=== PATIENT | female | born 1955 | race Caucasian/White ===

== ENCOUNTER 2017-10-14 12:37 | Inpatient (IN) | payer BC ==
[2017-10-14] MEDS ORDERED: NS 250 ML IV 250 ML IV ONE (14:36)
[2017-10-14 15:14] LABS: BASOPHILS # (AUTO) 0.1 X10^3/uL (0.0-0.1); BASOPHILS % (AUTO) 0.9 % (0.2-1.0); HEMATOCRIT 39.9 % (36.0-47.0); HEMOGLOBIN 13.9 g/dL (12.0-16.0); LYMPHOCYTES # (AUTO) 1.8 X10^3/uL (1.3-2.9); LYMPHOCYTES % (AUTO) 16.6 % (21.0-51.0); MEAN CORPUSCULAR HEMOGLOBIN 30.7 pg (27.0-34.0); MEAN CORPUSCULAR HGB CONC 34.7 g/dL (33.0-35.0); MEAN CORPUSCULAR VOLUME 88.4 fL (80.0-100.0); MEAN PLATELET VOLUME 9.7 fL (7.4-11.0); MONOCYTES % (AUTO) 9.1 % (0.0-13.0); NEUTROPHILS # (AUTO) 7.8 x10^3/uL (2.2-4.8); NEUTROPHILS % (AUTO) 73.4 % (42.0-75.0); PLATELET COUNT 237 X10^3/uL (150.0-450.0); RED BLOOD COUNT 4.52 X10^6/uL (3.5-5.4); RED CELL DISTRIBUTION WIDTH 13.7 % (11.6-16.5); WHITE BLOOD COUNT 10.6 X10^3/uL (3.6-10.0)
[2017-10-14 15:26] LABS: ALANINE AMINOTRANSFERASE 38 Units/L (12-78); ALBUMIN 3.4 g/dL (3.4-5.0); ALKALINE PHOSPHATASE 74 Units/L (46-116); AMYLASE 51 Units/L (25-115); ASPARTATE AMINO TRANSFERASE 30 Units/L (15-37); BLOOD UREA NITROGEN 9 mg/dL (7-18); CALCIUM 8.5 mg/dL (8.5-10.1); CARBON DIOXIDE 26.2 mmol/L (21-32); CHLORIDE 103 mmol/L (98-107); CREATININE 1.01 mg/dL (0.55-1.02); LIPASE 212 Units/L (73-393); SODIUM 139 mmol/L (136-145); TOTAL PROTEIN 7.1 g/dL (6.4-8.2); eGFR BLACK RACES > 60 (>60); eGFR NON BLACK RACES 59 (>60)
[2017-10-14] MEDS: FLAGYL IV PREMIX 500 MG BAG 500 MG/100 ML BAG IV SCH ×2 (15:39→22:15)
[2017-10-14] MEDS: PROTONIX INJ 40 MG VIAL IVP SCH (15:40)
[2017-10-14] MEDS: NS 1000 ML 1,000 ML IV SCH (15:40)
[2017-10-14] MEDS ORDERED: DUONEB 0.5 MG/3 MG NEB PRN (15:54)
[2017-10-14] MEDS ORDERED: POTASSIUM CHL 60 MEQ/NS 0.45% 500 ML IV PRN (16:46)
[2017-10-14] MEDS ORDERED: MAG-OX TAB PO PRN (16:46)
[2017-10-14] MEDS ORDERED: POTASSIUM CHLORIDE LIQ 20 MEQ UDC PO PRN (16:46)
[2017-10-14] MEDS ORDERED: K-RIDER 10 MEQ/NS 100 ML 10 MEQ/100 ML BAG IV PRN (16:46)
[2017-10-14] MEDS ORDERED: POTASSIUM CHL 40 MEQ/NS 0.45% 500 ML IV PRN (16:46)
[2017-10-14] MEDS ORDERED: K-LYTE EFFERVESCENT PO PRN (16:46)
[2017-10-14] MEDS: ZOFRAN INJ 4 MG VIAL IVP PRN (16:55)
[2017-10-14 18:20] VITALS: BMI 31.2
[2017-10-14 18:34] LABS: BILIRUBIN,URINE NEGATIVE (NEGATIVE); BLOOD/HEMOGLOBIN,URINE NEGATIVE (NEGATIVE); GLUCOSE, URINE NEGATIVE (NEGATIVE); KETONES,URINE NEGATIVE (NEGATIVE); LEUKOCYTE ESTERASE ,URINE 1+ (NEGATIVE); NITRITES,URINE NEGATIVE (NEGATIVE); PH,URINE 6.5 (5.0 - 8.0); PROTEIN,URINE NEGATIVE (NEGATIVE); UROBILINOGEN,URINE NORMAL (NORMAL)
[2017-10-14 18:43] LABS: APPEARANCE,URINE CLEAR (CLEAR); BACTERIA,URINE 1+ /HPF (NEGATIVE); COLOR,URINE PALE YELLOW (YELLOW); RBC,URINE NONE SEEN /HPF (NEGATIVE); SQUAMOUS EPITHELIAL CELL,UR MODERATE /HPF (NEGATIVE)
[2017-10-15] MEDS: MAGNESIUM SULFATE 1 GM/100 mL PREMIX 1 GM/100 ML BAG IV PRN ×3 (00:21→02:47)
[2017-10-15] MEDS: TYLENOL 325 MG TAB PO PRN (02:47)
[2017-10-15] MEDS: NS 1000 ML 1,000 ML IV SCH ×2 (03:06→06:38)
[2017-10-15 04:25] LABS: BASOPHILS % (AUTO) 0.5 % (0.2-1.0); EOSINOPHILS # (AUTO) 0.1 x10^3/uL (0.0-0.2); EOSINOPHILS % (AUTO) 0.8 % (0.9-2.9); HEMATOCRIT 36.3 % (36.0-47.0); HEMOGLOBIN 12.6 g/dL (12.0-16.0); LYMPHOCYTES # (AUTO) 1.9 X10^3/uL (1.3-2.9); LYMPHOCYTES % (AUTO) 20.9 % (21.0-51.0); MEAN CORPUSCULAR HEMOGLOBIN 30.6 pg (27.0-34.0); MEAN CORPUSCULAR HGB CONC 34.8 g/dL (33.0-35.0); MEAN CORPUSCULAR VOLUME 87.9 fL (80.0-100.0); MEAN PLATELET VOLUME 9.7 fL (7.4-11.0); MONOCYTES # (AUTO) 0.9 x10^3/uL (0.3-0.8); MONOCYTES % (AUTO) 10.5 % (0.0-13.0); NEUTROPHILS % (AUTO) 67.3 % (42.0-75.0); PLATELET COUNT 217 X10^3/uL (150.0-450.0); RED BLOOD COUNT 4.13 X10^6/uL (3.5-5.4); RED CELL DISTRIBUTION WIDTH 13.6 % (11.6-16.5); WHITE BLOOD COUNT 8.9 X10^3/uL (3.6-10.0)
[2017-10-15 04:36] LABS: ALANINE AMINOTRANSFERASE 32 Units/L (12-78); ALBUMIN 2.9 g/dL (3.4-5.0); ALKALINE PHOSPHATASE 61 Units/L (46-116); ASPARTATE AMINO TRANSFERASE 27 Units/L (15-37); BLOOD UREA NITROGEN 6 mg/dL (7-18); CALCIUM 7.9 mg/dL (8.5-10.1); CARBON DIOXIDE 25.9 mmol/L (21-32); CHLORIDE 106 mmol/L (98-107); COR CA(FOR HYPOALB) 8.8 mg/dL (8.5-10.1); COR NA(FOR HYPERGLY) 140 mmol/L (136-145); CREATININE 0.89 mg/dL (0.55-1.02); SODIUM 139 mmol/L (136-145); TOTAL PROTEIN 6.1 g/dL (6.4-8.2); eGFR BLACK RACES > 60 (>60); eGFR NON BLACK RACES > 60 (>60)
[2017-10-15] MEDS: FLAGYL IV PREMIX 500 MG BAG 500 MG/100 ML BAG IV SCH ×3 (06:37→21:59)
[2017-10-15] MEDS: ZOFRAN INJ 4 MG VIAL IVP PRN ×2 (07:24→17:23)
[2017-10-15] MEDS: PROTONIX INJ 40 MG VIAL IVP SCH (09:51)
[2017-10-15] MEDS ORDERED: CELECOXIB PO PRN (20:10)
[2017-10-15] MEDS ORDERED: PHENERGAN TAB 25 MG PO PRN (20:10)
[2017-10-15] MEDS ORDERED: CELEBREX PO PRN (20:20)
[2017-10-15] MEDS ORDERED: PATIENT'S HOME MEDICATION (Potassium Chloride [Potassium Chloride] 1 TAB) PO SCH (21:00)
[2017-10-15] MEDS: K-DUR TAB 20 MEQ PO SCH (21:58)
[2017-10-16] MEDS ORDERED: MAALOX or MYLANTA PO PRN (01:33)
[2017-10-16] MEDS: ZOFRAN INJ 4 MG VIAL IVP PRN ×2 (01:42→08:14)
[2017-10-16] MEDS: TYLENOL 325 MG TAB PO PRN (03:52)
[2017-10-16 04:31] LABS: CRYPTOSPORIDIUM PARVUM ANTIGEN NEGATIVE (NEGATIVE); GIARDIA LAMBLIA ANTIGEN NEGATIVE (NEGATIVE)
[2017-10-16 06:36] LABS: BASOPHILS # (AUTO) 0.1 X10^3/uL (0.0-0.1); BASOPHILS % (AUTO) 0.6 % (0.2-1.0); EOSINOPHILS # (AUTO) 0.1 x10^3/uL (0.0-0.2); EOSINOPHILS % (AUTO) 1.1 % (0.9-2.9); HEMOGLOBIN 12.7 g/dL (12.0-16.0); LYMPHOCYTES # (AUTO) 1.8 X10^3/uL (1.3-2.9); LYMPHOCYTES % (AUTO) 20.5 % (21.0-51.0); MEAN CORPUSCULAR HEMOGLOBIN 30.6 pg (27.0-34.0); MEAN CORPUSCULAR HGB CONC 34.4 g/dL (33.0-35.0); MEAN CORPUSCULAR VOLUME 88.8 fL (80.0-100.0); MEAN PLATELET VOLUME 9.8 fL (7.4-11.0); MONOCYTES # (AUTO) 0.7 x10^3/uL (0.3-0.8); MONOCYTES % (AUTO) 7.6 % (0.0-13.0); NEUTROPHILS % (AUTO) 70.2 % (42.0-75.0); PLATELET COUNT 217 X10^3/uL (150.0-450.0); RED BLOOD COUNT 4.16 X10^6/uL (3.5-5.4); RED CELL DISTRIBUTION WIDTH 13.8 % (11.6-16.5); WHITE BLOOD COUNT 8.6 X10^3/uL (3.6-10.0)
[2017-10-16 06:40] LABS: ALANINE AMINOTRANSFERASE 35 Units/L (12-78); ALBUMIN 3.1 g/dL (3.4-5.0); ALKALINE PHOSPHATASE 63 Units/L (46-116); ASPARTATE AMINO TRANSFERASE 27 Units/L (15-37); BLOOD UREA NITROGEN 4 mg/dL (7-18); CARBON DIOXIDE 25.4 mmol/L (21-32); CHLORIDE 108 mmol/L (98-107); COR CA(FOR HYPOALB) 8.7 mg/dL (8.5-10.1); COR NA(FOR HYPERGLY) 142 mmol/L (136-145); CREATININE 0.85 mg/dL (0.55-1.02); SODIUM 142 mmol/L (136-145); TOTAL PROTEIN 6.4 g/dL (6.4-8.2); eGFR BLACK RACES > 60 (>60); eGFR NON BLACK RACES > 60 (>60)
[2017-10-16] MEDS: FLAGYL IV PREMIX 500 MG BAG 500 MG/100 ML BAG IV SCH (08:14)
[2017-10-16] MEDS: PROTONIX INJ 40 MG VIAL IVP SCH ×2 (08:14→21:48)
[2017-10-16] MEDS: ASPIRIN 81 MG CHEWTAB PO SCH (08:15)
[2017-10-16] MEDS: CELEXA PO SCH (08:15)
[2017-10-16] MEDS: K-DUR TAB 20 MEQ PO SCH ×2 (08:15→21:47)
[2017-10-16] MEDS: ZESTRIL TAB 10 MG PO SCH (08:15)
[2017-10-16] MEDS: MAXZIDE 37.5/25 MG PO SCH (09:00)
[2017-10-16] MEDS ORDERED: CITALOPRAM HYDROBROMIDE PO SCH (09:00)
[2017-10-16] MEDS: BENTYL CAP 10 MG PO SCH ×4 (14:54→21:46)
[2017-10-16] MEDS: LEVSIN/MAALOX/LIDOC VISC PO SCH ×4 (14:55→21:47)
[2017-10-16] MEDS: VANCOMYCIN HCL PO SCH ×3 (14:56→21:49)
[2017-10-16] MEDS: PEPCID 20 MG IV PREMIX* 20 MG/50 ML BAG IV SCH ×2 (15:00→21:48)
[2017-10-16] MEDS: NS 1000 ML 1,000 ML IV SCH (20:12)
[2017-10-17] MEDS: VANCOMYCIN HCL PO SCH ×4 (03:13→20:45)
[2017-10-17 06:56] LABS: BASOPHILS # (AUTO) 0.1 X10^3/uL (0.0-0.1); BASOPHILS % (AUTO) 0.8 % (0.2-1.0); EOSINOPHILS # (AUTO) 0.1 x10^3/uL (0.0-0.2); EOSINOPHILS % (AUTO) 1.1 % (0.9-2.9); HEMATOCRIT 34.8 % (36.0-47.0); LYMPHOCYTES # (AUTO) 2.1 X10^3/uL (1.3-2.9); LYMPHOCYTES % (AUTO) 25.7 % (21.0-51.0); MEAN CORPUSCULAR HEMOGLOBIN 30.5 pg (27.0-34.0); MEAN CORPUSCULAR HGB CONC 34.5 g/dL (33.0-35.0); MEAN CORPUSCULAR VOLUME 88.3 fL (80.0-100.0); MEAN PLATELET VOLUME 9.8 fL (7.4-11.0); MONOCYTES # (AUTO) 0.7 x10^3/uL (0.3-0.8); MONOCYTES % (AUTO) 8.5 % (0.0-13.0); NEUTROPHILS # (AUTO) 5.2 x10^3/uL (2.2-4.8); NEUTROPHILS % (AUTO) 63.9 % (42.0-75.0); PLATELET COUNT 214 X10^3/uL (150.0-450.0); RED BLOOD COUNT 3.93 X10^6/uL (3.5-5.4); RED CELL DISTRIBUTION WIDTH 13.5 % (11.6-16.5); WHITE BLOOD COUNT 8.2 X10^3/uL (3.6-10.0)
[2017-10-17 07:14] LABS: ALANINE AMINOTRANSFERASE 32 Units/L (12-78); ALBUMIN 2.8 g/dL (3.4-5.0); ALKALINE PHOSPHATASE 55 Units/L (46-116); ASPARTATE AMINO TRANSFERASE 24 Units/L (15-37); BLOOD UREA NITROGEN 4 mg/dL (7-18); CARBON DIOXIDE 25.6 mmol/L (21-32); CHLORIDE 109 mmol/L (98-107); CREATININE 0.71 mg/dL (0.55-1.02); SODIUM 143 mmol/L (136-145); TOTAL PROTEIN 5.8 g/dL (6.4-8.2); eGFR BLACK RACES > 60 (>60); eGFR NON BLACK RACES > 60 (>60)
[2017-10-17] MEDS: PROTONIX INJ 40 MG VIAL IVP SCH ×3 (08:58→20:45)
[2017-10-17] MEDS: NS 1000 ML 1,000 ML IV SCH ×2 (08:58→22:48)
[2017-10-17] MEDS: K-DUR TAB 20 MEQ PO SCH ×2 (08:59→20:45)
[2017-10-17] MEDS: CELEXA PO SCH (08:59)
[2017-10-17] MEDS: BENTYL CAP 10 MG PO SCH ×4 (08:59→20:44)
[2017-10-17] MEDS: MAXZIDE 37.5/25 MG PO SCH (09:00)
[2017-10-17] MEDS: PEPCID 20 MG IV PREMIX* 20 MG/50 ML BAG IV SCH ×2 (09:00→20:44)
[2017-10-17] MEDS: ASPIRIN 81 MG CHEWTAB PO SCH (09:00)
[2017-10-17] MEDS: LEVSIN/MAALOX/LIDOC VISC PO SCH ×4 (09:00→20:44)
[2017-10-17] MEDS: ZESTRIL TAB 10 MG PO SCH (09:00)
[2017-10-17] MEDS ORDERED: BENTYL CAP 10 MG PO ONE ×2 (13:12→17:02)
[2017-10-17] MEDS ORDERED: LEVSIN/MAALOX/LIDOC VISC ONE (17:01)
[2017-10-18] MEDS: VANCOMYCIN HCL PO SCH ×3 (03:55→12:50)
[2017-10-18] MEDS ORDERED: BENTYL CAP 10 MG PO ONE (05:53)
[2017-10-18] MEDS: NS 1000 ML 1,000 ML IV SCH ×3 (06:09→10:21)
[2017-10-18 06:19] LABS: BASOPHILS % (AUTO) 1.1 % (0.2-1.0); EOSINOPHILS % (AUTO) 1.3 % (0.9-2.9); HEMATOCRIT 32.2 % (36.0-47.0); HEMOGLOBIN 11.3 g/dL (12.0-16.0); LYMPHOCYTES # (AUTO) 2.3 X10^3/uL (1.3-2.9); LYMPHOCYTES % (AUTO) 24.5 % (21.0-51.0); MEAN CORPUSCULAR HEMOGLOBIN 30.8 pg (27.0-34.0); MEAN CORPUSCULAR VOLUME 88.1 fL (80.0-100.0); MEAN PLATELET VOLUME 10.5 fL (7.4-11.0); MONOCYTES % (AUTO) 7.5 % (0.0-13.0); NEUTROPHILS # (AUTO) 6.1 x10^3/uL (2.2-4.8); NEUTROPHILS % (AUTO) 65.6 % (42.0-75.0); PLATELET COUNT 218 X10^3/uL (150.0-450.0); RED BLOOD COUNT 3.65 X10^6/uL (3.5-5.4); RED CELL DISTRIBUTION WIDTH 13.8 % (11.6-16.5); WHITE BLOOD COUNT 9.3 X10^3/uL (3.6-10.0)
[2017-10-18 06:20] LABS: BASOPHILS # (AUTO) 0.1 X10^3/uL (0.0-0.1); EOSINOPHILS # (AUTO) 0.1 x10^3/uL (0.0-0.2); MONOCYTES # (AUTO) 0.7 x10^3/uL (0.3-0.8)
[2017-10-18] MEDS: BENTYL CAP 10 MG PO SCH ×3 (06:58→12:22)
[2017-10-18 07:12] LABS: ALANINE AMINOTRANSFERASE 30 Units/L (12-78); ALBUMIN 2.8 g/dL (3.4-5.0); ALKALINE PHOSPHATASE 55 Units/L (46-116); ASPARTATE AMINO TRANSFERASE 30 Units/L (15-37); BLOOD UREA NITROGEN 4 mg/dL (7-18); CALCIUM 8.2 mg/dL (8.5-10.1); CARBON DIOXIDE 26.3 mmol/L (21-32); CHLORIDE 107 mmol/L (98-107); COR CA(FOR HYPOALB) 9.2 mg/dL (8.5-10.1); CREATININE 0.62 mg/dL (0.55-1.02); SODIUM 142 mmol/L (136-145); TOTAL PROTEIN 5.8 g/dL (6.4-8.2); eGFR BLACK RACES > 60 (>60); eGFR NON BLACK RACES > 60 (>60)
[2017-10-18] MEDS: PROTONIX INJ 40 MG VIAL IVP SCH (09:42)
[2017-10-18] MEDS: PEPCID 20 MG IV PREMIX* 20 MG/50 ML BAG IV SCH (09:42)
[2017-10-18] MEDS: MAXZIDE 37.5/25 MG PO SCH (09:43)
[2017-10-18] MEDS: LEVSIN/MAALOX/LIDOC VISC PO SCH (09:43)
[2017-10-18] MEDS: K-DUR TAB 20 MEQ PO SCH (09:44)
[2017-10-18] MEDS: ZESTRIL TAB 10 MG PO SCH (09:44)
[2017-10-18] MEDS: CELEXA PO SCH (09:44)
[2017-10-18] MEDS: ASPIRIN 81 MG CHEWTAB PO SCH (09:44)
--- NOTE | 2017-10-18 11:44 | DR.UPDATE ---
H&P Update History and Physical Update: WAS SEEN IN THE OFFICE ON 08/13/18. AN H&P WAS COMPLETED PRIOR TO ADMISSION. PATIENT HAS BEEN SEEN AND EXAMINED WITH NO CHANGES NOTED TO H&P. Changes noted: NO Yes with the following:
--- NOTE | 2017-10-18 11:53 | PCM.PROG ---
Progress Note - Progress Note for Day of Date: 10/15/17 - Subjective Subjective: WAS ADMITTED FOR C.DIFF REFRACTORY TO OUTPATIENT TREATMENT AND HYPERTENSION. TODAY, SHE CONTINUES WITH COMPLAINTS OF DIFFUSE ABDOMINAL PAIN, DIARRHEA, AND NAUSEA. ON EXAMINATION, HEART IS REGULAR IN RATE AND RHYTHM. BILATERAL LUNGS ARE CLEAR TO AUSCULTATION. ABDOMEN IS ROUND AND NOTED WITH DIFFUSE TENDERNESS TO PALPATION. HYPERACTIVE BOWEL SOUNDS NOTED IN ALL QUADRANTS. THERE IS NORMAL RANGE OF MOTION NOTED TO ALL EXTREMITIES. HER VITALS THIS MORNING ARE 98.5-60-18-98%-114/69. LABS WERE OBTAINED. ABNORMAL LAB VALUES INCLUDE THE FOLLOWING: POTASSIUM 3.4, BUN 6, GLUCOSE 124, CALCIUM 7.9, MAGNESIUM 2.9, TOTAL PROTEIN 6.1, ALBUMIN 2.9. TODAY, WE WILL REPLACE HER POTASSIUM AND MAGNESIUM BY THE PROTOCOL. SHE CONTINUES ON FLAGYL 500MG IV TID AND PROTONIX 40MG IV DAILY. WE WILL CONTINUE WITH CURRENT PLAN OF CARE TODAY. WE PLAN TO FOLLOW UP WITH AM LABS AND CONTINUE TO MONITOR PATIENT. - Past Medical Family Social History Past Med/Fam/Surg Hx: No changes since H&P Allergies: Allergies codeine Allergy (Verified 10/14/17 14:35) Sulfa (Sulfonamide Antibiotics) [SULFA] Allergy (Verified 10/14/17 14:35) amoxicillin [From Augmentin] Adverse Reaction (Verified 10/14/17 14:35) clavulanic acid [From Augmentin] Adverse Reaction (Verified 10/14/17 14:35) - Review of Systems ROS: No change since H&P - Vital Signs and I&O's Vital Signs: Temperature 98.3 F Pulse Rate [Brachial] 66 Pulse Rate [Left Radial] 76 Pulse Rate 86 Respiratory Rate 18 Blood Pressure [Right Arm] 142/76 O2 Sat by Pulse Oximetry 99 Intake and Output: Intake & Output 10/15/17 10/16/17 10/17/17 10/18/17 11:59 11:59 11:59 11:59 Intake Total 3976 0915 2294 4465 Output Total 5 5 Balance 3976 6525 5788 1045 - Physical Exam Oriented: Normal Eyes: Normal. negative: Blurred Vision, Diplopia, Discharge, Pain, Redness, Photophobia, Other Ear: Normal. negative: Right, Left, Swelling, Ecchymosis, Hemotypanum, Abrasion , Laceration Nose: Normal. negative: Injected, Discharge, Blood, Other Throat: Normal. negative: Tonsillar Hypertrophy, Red, Exudate, Dry, Other Respiratory: Normal Cardiovascular: Normal : Normal Auscultation: Bowel Sounds: Normal. negative: Bruit, Absent, Increased, Decreased, High Pitched, Other Palpation: Normal. negative: Spleen Enlarged, Liver Enlarged, Mass Pulsatile, Other Tenderness: Diffuse, Moderate. negative: Rebound, Guarding, Rigidity Skin: Normal Musculoskeletal: Normal Psychiatric: Normal Mood Description: Calm Affect: Normal Speech Pattern: Clear, Appropriate - Laboratory and Diagnostics Result Diagrams: 10/18/17 05:35 10/18/17 05:35 Labs: 10/16/17 03:00 Stool Stool Culture - Final 10/16/17 03:00 Stool - Final Laboratory WBC 9.3 X10^3/uL (3.6-10.0) 10/18/17 05:35 RBC 3.65 X10^6/uL (3.5-5.4) 10/18/17 05:35 Hgb 11.3 g/dL (12.0-16.0) L 10/18/17 05:35 Hct 32.2 % (36.0-47.0) L 10/18/17 05:35 MCV 88.1 fL (80.0-100.0) 10/18/17 05:35 MCH 30.8 pg (27.0-34.0) 10/18/17 05:35 MCHC 35.0 g/dL (33.0-35.0) 10/18/17 05:35 RDW 13.8 % (11.6-16.5) 10/18/17 05:35 Plt Count 218 X10^3/uL (150.0-450.0) 10/18/17 05:35 MPV 10.5 fL (7.4-11.0) 10/18/17 05:35 Neut % 65.6 % (42.0-75.0) 10/18/17 05:35 Lymph % 24.5 % (21.0-51.0) 10/18/17 05:35 [place] % 7.5 % (0.0-13.0) 10/18/17 05:35 Eos % 1.3 % (0.9-2.9) 10/18/17 05:35 Baso % 1.1 % (0.2-1.0) H 10/18/17 05:35 Neut # 6.1 x10^3/uL (2.2-4.8) H 10/18/17 05:35 Lymph # 2.3 X10^3/uL (1.3-2.9) 10/18/17 05:35 [place] # 0.7 x10^3/uL (0.3-0.8) 10/18/17 05:35 Eos # 0.1 x10^3/uL (0.0-0.2) 10/18/17 05:35 Baso # 0.1 X10^3/uL (0.0-0.1) 10/18/17 05:35 Absolute Nucleated RBC 0.0 /100WBC 10/18/17 05:35 Sodium 142 mmol/L (136-145) 10/18/17 05:35 Corrected Sodium TNP 10/18/17 05:35 Potassium 4.2 mmol/L (3.5-5.1) 10/18/17 05:35 Chloride 107 mmol/L (98-107) 10/18/17 05:35 Carbon Dioxide 26.3 mmol/L (21-32) 10/18/17 05:35 BUN 4 mg/dL (7-18) L 10/18/17 05:35 Creatinine 0.62 mg/dL (0.55-1.02) 10/18/17 05:35 Est GFR (MDRD) Af Amer > 60 (>60) 10/18/17 05:35 Est GFR (MDRD) Non-Af > 60 (>60) 10/18/17 05:35 Glucose 105 mg/dL (65-99) H 10/18/17 05:35 Calcium 8.2 mg/dL (8.5-10.1) L 10/18/17 05:35 Corrected Calcium 9.2 mg/dL (8.5-10.1) 10/18/17 05:35 Magnesium 2.9 mg/dL (1.7-2.9) 10/15/17 04:05 Total Bilirubin 0.40 mg/dL (0.2-1.0) 10/18/17 05:35 AST 30 Units/L (15-37) 10/18/17 05:35 ALT 30 Units/L (12-78) 10/18/17 05:35 Alkaline Phosphatase 55 Units/L (46-116) 10/18/17 05:35 Total Protein 5.8 g/dL (6.4-8.2) L 10/18/17 05:35 Albumin 2.8 g/dL (3.4-5.0) L 10/18/17 05:35 Globulin 3.0 g/dL (2.5-4.5) 10/18/17 05:35 Albumin/Globulin Ratio 0.9 Ratio (1.1-2.1) L 10/18/17 05:35 Amylase 51 Units/L (25-115) 10/14/17 15:00 Lipase 212 Units/L (73-393) 10/14/17 15:00 Specimen Type Clean catch urine 10/14/17 18:02 Urine Color Pale yellow (YELLOW) 10/14/17 18:02 Urine Appearance Clear (CLEAR) 10/14/17 18:02 Urine pH 6.5 (5.0 - 8.0) 10/14/17 18:02 Ur Specific [place] 1.005 (1.000-1.030) 10/14/17 18:02 Urine Protein Negative (NEGATIVE) 10/14/17 18:02 Urine Glucose (UA) Negative (NEGATIVE) 10/14/17 18:02 Urine Ketones Negative (NEGATIVE) 10/14/17 18:02 Urine Occult Blood Negative (NEGATIVE) 10/14/17 18:02 Urine Nitrite Negative (NEGATIVE) 10/14/17 18:02 Urine Bilirubin Negative (NEGATIVE) 10/14/17 18:02 Urine Urobilinogen Normal (NORMAL) 10/14/17 18:02 Ur Leukocyte Esterase 1+ (NEGATIVE) 10/14/17 18:02 Urine RBC None seen /HPF (NEGATIVE) 10/14/17 18:02 Urine WBC 0-3 /HPF (NEGATIVE) 10/14/17 18:02 Ur Squamous Epith Cells Moderate /HPF (NEGATIVE) 10/14/17 18:02 Urine Bacteria 1+ /HPF (NEGATIVE) 10/14/17 18:02 Ur Culture Indicated? No/not indicated 10/14/17 18:02 Stool Description 10 g brown/unformed 10/16/17 03:00 Stl Occult Blood (IFOB) Negative (NEGATIVE) 10/16/17 03:00 Stl C. diff Tox B Gene Negative (NEGATIVE) 10/16/17 03:00 Stl C. diff [id number] Negative (NEGATIVE) 10/16/17 03:00 Cryptosporid parvum Ag Negative (NEGATIVE) 10/16/17 03:00 E. histolytica Antigen Negative (NEGATIVE) 10/16/17 03:00 Giardia lamblia Ag Negative (NEGATIVE) 10/16/17 03:00 - Plan (1) C. difficile diarrhea Status: Acute Plan: FLAGYL 500MG IV TID, PROTONIX 40MG IV DAILY, ZOFRAN 4MG IV Q6H, CONTINUE TO MONITOR (2) Hypertension Status: Acute Qualifiers: Hypertension type: essential hypertension Qualified Code(s): I10 - Essential (primary) hypertension Plan: CONTINUE MAXZIDE, CONTINUE LISINOPRIL, CONTINUE TO MONITOR (3) Hypermagnesemia Status: Acute Plan: MAGNESIUM PROTOCOL, CONTINUE TO MONITOR (4) Hyperkalemia Status: Acute Plan: POTASSIUM PROTOCOL, CONTINUE TO MONITOR (5) Depression Status: Acute Qualifiers: Depression Type: major depressive disorder Major depression recurrence: recurrent Active/Remission status: remission status unspecified Qualified Code(s): F33.9 - Major depressive disorder, recurrent, unspecified Plan: CONTINUE CELEXA, CONTINUE TO MONITOR
[2017-10-18 12:32] VITALS: BP 147/66
== END 2017-10-18 12:55 | disposition home or self-care (01) | DRG 372 ==
LOC: UNDOADMIN 12:37 → MED/SURG 12:37 → OBS 14:04
PROVIDERS: ADMIT Internal Medicine; ATTEND Internal Medicine
DX: A04.72 Enterocolitis due to Clostridium difficile, not specified as recurrent (principal); I10 Essential (primary) hypertension; R10.84 Generalized abdominal pain; R19.7 Diarrhea, unspecified; E87.5 Hyperkalemia; F33.8 Other recurrent depressive disorders; E83.41 Hypermagnesemia
CPT/HCPCS: 36415; 80053; 81001; 82150; 82270; 83690; 83735; 85025; 87045; 87328; 87329; 87336; 87427; 87493; 87899; 94760; A4216; A4222; C9113; S0028; S0030; J2405; J3480; J7620